=== PATIENT | female | born 1990 | race Hispanic/Latino ===

== ENCOUNTER 2017-03-27 10:38 | Emergency (ER) | payer OTHER, SELFPAY ==
[2017-03-27] MEDS ORDERED: Dexamethasone 4 mg/ml Vial ONE (11:33)
[2017-03-27] MEDS ORDERED: diphenhydrAMINE HCl 25 MG CAP ONE (11:33)
== END 2017-03-27 12:03 | disposition home or self-care (01) ==
LOC: ERS 10:38
DX: J02.9 Acute pharyngitis, unspecified (principal); F31.9 Bipolar disorder, unspecified
CPT/HCPCS: 87081; 87430; 96372; J1100

== ENCOUNTER 2017-05-25 18:22 | Emergency (ER) | payer OTHER | END 2017-05-25 20:27 | disposition home or self-care (01) | LOC: ERS 18:22 | DX: B34.9 Viral infection, unspecified (principal); F31.9 Bipolar disorder, unspecified | CPT/HCPCS: 87081; 87430; 99283 ==

== ENCOUNTER 2018-07-10 07:41 | Emergency (ER) | payer MEDICAID, SELFPAY ==
[2018-07-10 09:09] LABS: #Eosinphils 0.3 thou/uL (0.0-0.7); #Monocytes 0.7 thou/uL (0.11-0.59); #Neutrophils 5.5 thou/uL (1.40-6.50); %Basophils 0.4 % (0.0-1.0); %Eosinophils 4.1 % (0.0-10.0); %Lymphocytes 13.5 % (21.0-51.0); %Monocytes 9.2 % (0.0-10.0); %Neutrophils 72.8 % (42.0-75.0); Hemoglobin 15.8 g/dL (12.0-16.0); Mean Corpuscular HGB CONC 31.4 g/dL (32.0-36.0); Mean Corpuscular Volume 89.1 fL (78.0-98.0); Mean Platelet Volume 7.6 fL (7.4-10.4); Platelet Count 356 thou/uL (130-400); RBC Distribution Width 14.1 % (11.5-14.5); Red Blood Cell (RBC) Count 5.66 mill/uL (4.20-5.40); White Blood Cell (WBC) Count 7.6 thou/uL (4.8-10.8)
[2018-07-10 09:15] LABS: BHCG - Serum Negative (NEGATIVE); Pregs Control Background? CLEAR/WHITE (CLR/WHITE); Pregs Control Bar Appear? YES (CONTROL BAR)
[2018-07-10 09:18] LABS: ALT (SGPT) 23 U/L (8-55); AST (SGOT) 23 U/L (5-34); Albumin 4.4 g/dL (3.5-5.0); Alkaline Phosphatase 101 U/L (40-150); Anion Gap 14 mmol/L (10-20); BUN (Urea Nitrogen) 13 mg/dL (7.0-18.7); Bilirubin, Total 0.5 mg/dL (0.2-1.2); Calc. Creatinine Clearance 0 mL/min (70-130); Calcium 9.5 mg/dL (7.8-10.44); Carbon Dioxide 19 mmol/L (22-29); Chloride 110 mmol/L (98-107); Estimated GFR-MDRD 78; Globulin 3.4 g/dL (2.4-3.5); Glucose 93 mg/dL (70-105); Potassium 5.7 mmol/L (3.5-5.1); Protein, Total 7.8 g/dL (6.0-8.3); Sodium 137 mmol/L (136-145)
== END 2018-07-10 09:54 | disposition left against medical advice (07) ==
LOC: ERS 07:41
DX: M54.2 Cervicalgia (principal); M79.601 Pain in right arm; F31.9 Bipolar disorder, unspecified
CPT/HCPCS: 36415; 80053; 84703; 85025; 99284

== ENCOUNTER 2020-06-13 13:08 | Emergency (ER) | payer SELFPAY ==
[2020-06-13 14:39] LABS: #Basophils 0.1 thou/uL (0.0-0.2); #Eosinphils 0.1 thou/uL (0.0-0.7); #Lymphocytes 2.6 thou/uL (1.20-3.40); #Monocytes 0.6 thou/uL (0.11-0.59); #Neutrophils 7.1 thou/uL (1.40-6.50); %Basophils 0.9 % (0.0-1.0); %Eosinophils 1.4 % (0.0-10.0); %Lymphocytes 24.2 % (21.0-51.0); %Monocytes 5.7 % (0.0-10.0); %Neutrophils 67.8 % (42.0-75.0); Hemoglobin 14.4 g/dL (12.0-16.0); Mean Corpuscular HGB CONC 32.6 g/dL (32.0-36.0); Mean Corpuscular Hemoglobin 30.1 pg (27.0-31.0); Mean Corpuscular Volume 92.2 fL (78.0-98.0); Mean Platelet Volume 7.1 fL (7.4-10.4); Platelet Count 348 thou/uL (130-400); RBC Distribution Width 11.8 % (11.5-14.5); Red Blood Cell (RBC) Count 4.79 mill/uL (4.20-5.40); White Blood Cell (WBC) Count 10.5 thou/uL (4.8-10.8)
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
[2020-06-13] MEDS ORDERED: Ketorolac Tromethamine 30 MG/ML VIAL ONE (14:54)
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
[2020-06-13 15:03] LABS: ALT (SGPT) 18 U/L (8-55); AST (SGOT) 16 U/L (5-34); Albumin 3.6 g/dL (3.5-5.0); Alkaline Phosphatase 64 U/L (40-110); Anion Gap 13 mmol/L (10-20); BUN (Urea Nitrogen) 7 mg/dL (7.0-18.7); Bilirubin, Total 0.4 mg/dL (0.2-1.2); Calc. Creatinine Clearance 0 mL/min (70-130); Calcium 8.5 mg/dL (7.8-10.44); Carbon Dioxide 20 mmol/L (22-29); Chloride 109 mmol/L (98-107); Globulin 2.9 g/dL (2.4-3.5); Glucose 86 mg/dL (70-105); Lipase 87 U/L (8-78); Potassium 5.4 mmol/L (3.5-5.1); Protein, Total 6.5 g/dL (6.0-8.3); Sodium 137 mmol/L (136-145)
== END 2020-06-13 15:26 | disposition home or self-care (01) ==
LOC: ERS 13:08
DX: S80.01XA Contusion of right knee, initial encounter (principal); R51.9 Headache, unspecified; F17.210 Nicotine dependence, cigarettes, uncomplicated; Z79.899 Other long term (current) drug therapy; V49.9XXA Car occupant (driver) (passenger) injured in unspecified traffic accident, initial encounter
CPT/HCPCS: 36415; 70450; 72125; 80053; 83690; 85025; 96372; J1885